=== PATIENT | female | born 2000 | race Caucasian/White ===

== ENCOUNTER 2024-04-04 22:28 | Emergency (ER) | payer OTHER, SELFPAY ==
[2024-04-04 22:31] VITALS: BP 128/75
--- NOTE | 2024-04-04 23:08 | ED.GENMED ---
History of Present Illness
General
Chief Complaint: Suicidal Ideation
Source: patient
Exam Limitations: none
Time Seen by Provider: 04/04/24 22:48
Nursing documentation reviewed up to this point in time: agreed with
History of Present Illness
History of Present Illness:
This a pleasant 24-year-old transgender male presents with suicidal ideation. He was seen by his therapist and was advised to come to the emergency department because he has been having suicidal thoughts. He does not have an active plan. He has
been suffering from depression. Transitioning female to male.
Review of Systems
Review of Systems
Allergies reviewed?: Yes
All Other Systems: ROS reviewed and negative except as documented in HPI and ROS
Psychiatric: Reports depression, anxiety and suicidal (Passive thoughts of 6)
Phy Exam
General Physical Exam
General Presentation: well appearing and no apparent distress
General Skin: warm and dry
General Habitus: normal
General Mental: alert
General Hydration: appears well hydrated
ENT Exam
ENT Exam: EOMI, pharynx normal, neck supple and normocephalic
Eye Exam
Eye Exam: PERRL, cornea clear and conjunctiva normal
Cardiovascular Exam
Cardiovascular Exam: regular rate/rhythm, no edema, no murmur and normal peripheral pulses
Pulmonary Exam
Pulmonary Exam: lungs clear, no respiratory distress, no rales, no crackles, no rhonchi, no stridor, no wheezing and no cough
Gastrointestinal Exam
Gastrointestinal Exam: normal bowel sounds, non tender, soft, no organomegaly, no pulsatile mass and non distended
Neurological Exam
Neurological Exam: alert, oriented x3, no motor deficits and speech normal
Musculoskeletal Exam
Musculoskeletal Exam: full ROM and no edema
Skin Exam
Skin Exam: normal color, warm/dry, no rash and no petechia
Psychiatric Exam
Psychiatric Exam: normal mood/affect
Course
Orders/Labs/Results
Orders:
Orders
04/04/24 22:36
1:1 Observation - Suicide/ Violent Behavior As Directed
Crisis Consult Urgent
Reason for Consult: suicidal
04/04/24 23:16
Buspirone [Buspar] 5 mg PO NOW STA
Lamotrigine [Lamictal] 100 mg PO NOW STA
04/04/24 23:32
Lamotrigine [Lamictal] 200 mg PO NOW STA
04/04/24 23:42
HCG, Urine Qualitative Screen Urgent
Date Specimen was Collected: 04/04/24
Time Specimen was Collected: 23:25
Comment: ADDED
Urinalysis Reflex To Culture Urgent
Date Specimen was Collected: 04/04/24
Time Specimen was Collected: 23:25
Urine Drug Abuse Screen Urgent
Date Specimen was Collected: 04/04/24
Time Specimen was Collected: 23:25
Urine Microscopic Reflex Cult Urgent
Urine Culture Urgent
EMILY Source: U
Specimen Description:
Date Specimen was Collected: 04/04/24
Time Specimen was Collected: 23:25
04/05/24 01:24
Fosfomycin [Monurol] 3 gm PO ONCE ONE
04/05/24 01:58
Add On- LAB Urgent
Tests Added?: hcg
Abnormal Lab Results
04/04/24
23:42
Ur Occult Blood Reflex 2+ A
(Negative)
Leukocyte Esterase Rfl 2+ A
(Negative)
Urine RBC 7-10 A /HPF
(0-2)
Urine WBC (Reflex) 16-20 A /HPF
(0-5)
Urine Bacteria (Reflex) Moderate A
(Negative)
Urine Albumin (Reflex) 1+ A
(Neg - Trace)
Vital Signs
Initial and Last Documented VS:
Initial Vital Signs
Temp Pulse Resp BP Pulse Ox
98.6 F 75 16 128/75 99
04/04/24 22:31 04/04/24 22:31 04/04/24 22:31 04/04/24 22:31 04/04/24 22:31
Last Documented Vital Signs
Temp Pulse Resp BP Pulse Ox
98.1 F 75 18 125/70 95
04/05/24 02:07 04/05/24 02:07 04/05/24 02:07 04/05/24 02:07 04/05/24 02:07
*Critical Care Note
Total Time (30-74mins, 75-104mins- exclusive of procedures): Not Applicable
Update Note
Update Note:
Patient reports vaginal itchiness. Urinalysis does show signs of UTI. Will get a dose of Monurol.
ED Attending Note
-
Portions of this chart may have been created with voice recognition software.� Occasional wrong word or��sound alike� substitutions may have occurred due to the inherent limitations of voice recognition software.
Discharge Plan
Departure
Patient Disposition: Psych Facility
Date of Disposition: 04/05/24
Time of Disposition: 02:54
Patient Status:: 201
Discharge Problem:
Suicidal ideation
Instructions: Depression, Adult (DC), Suicide Prevention
Prescriptions:
No Action
buspirone [BuSpar] 5 mg Tablet
5 mg PO BID
lamotrigine [Lamictal] 200 mg Tablet
200 mg PO DAILY
testosterone 1 % (25 mg/2.5gram) Gel In Packet
25 mg topical DAILY
Referrals:
[facility] [Active] -
[facility],PHYSICIAN [Family Provider] -
Interventions
Interventions:
*Risk Screen - Suicide Last Done: 04/04/24 22:31
*General Assessment Last Done: 04/04/24 22:31
*Neglect/Abuse Screening Last Done: 04/04/24 22:31
*ED COVID-19 Vaccine History Last Done: 04/04/24 22:59
ED-Psychological Assessment Last Done: 04/05/24 02:08
Discharge Date and Time
Print Language: UPPER SORBIAN
[2024-04-04] MEDS: LAMICTAL 200 MG PO (23:41)
[2024-04-04] MEDS: BUSPAR 5 MG PO (23:41)
[2024-04-04 23:55] LABS: Urine Albumin 1+ (Neg - Trace); Urine Bilirubin Negative (Negative); Urine Character Clear (Clear); Urine Color Yellow; Urine Glucose Negative (Negative); Urine Ketone Negative (Negative); Urine Leukocyte 2+ (Negative); Urine Nitrite Negative (Negative); Urine Occult Blood 2+ (Negative); Urine Specific Gravity 1.015 (<1.030); Urine Urobilinogen Negative (Neg - 1+); Urine pH 6.5 (5.0-9.0)
[2024-04-05 00:07] LABS: Amphetamines Negative (Negative); Barbiturates Negative (Negative); Benzodiazepines Negative (Negative); Buprenorphine Negative (Negative); Cocaine Negative (Negative); Methadone Negative (Negative); Methamphetamines Negative (Negative)
[2024-04-05 00:08] LABS: Marijuana Negative (Negative); Opiates Negative (Negative); Phencyclidine Negative (Negative); Tricyclic Antidepressants Negative (Negative)
[2024-04-05 00:25] LABS: Urine Squamous Cell >30 /LPF (Few)
[2024-04-05 00:27] LABS: Urine Bacteria Moderate (Negative); Urine White Cell 16-20 /HPF (0-5)
[2024-04-05] MEDS: MONUROL 3 GM PO (02:03)
[2024-04-05 02:07] VITALS: BP 125/70
[2024-04-05 02:37] LABS: HCG, Urine Qualitative Screen Negative
== END 2024-04-05 05:30 ==
LOC: EMR 22:28
PROVIDERS: EMERGENCY PHYSICIAN Student in an Organized Health Care Education/Training Program
DX: R45.851 Suicidal ideations (principal); F32.A Depression, unspecified; F41.9 Anxiety disorder, unspecified; F64.0 Transsexualism; J45.909 Unspecified asthma, uncomplicated
CPT/HCPCS: 99285; 80306; 81003; 81015; 81025; 87086